=== PATIENT | male | born 1980 | race Caucasian/White ===

== ENCOUNTER 2018-01-18 23:50 | Emergency (ER) | payer MEDICAID ==
[~2018-01-18] VITALS: Ht 165.1 cm; Wt 53.5 kg
[2018-01-18 23:59] VITALS: Ht 165.1 cm; Wt 53.5 kg
[2018-01-19 00:48] LABS: BASOPHIL % 0.7 % (0-2); PLATELET COUNT 187 x10^3mcL (130-400); RED CELL DISTRIBUTION WIDTH 12.5 % (11.5-14.5)
[2018-01-19 00:58] LABS: CALCIUM 8.5 mg/dL (8.5-10.1); CARBON DIOXIDE 31.2 mmol/L (21-32); CHLORIDE SERUM 103 mmol/L (98-107); CREATININE SERUM 0.7 mg/dL (0.7-1.3); GFR1 > 60 mL/min; GLUCOSE SERUM 103 mg/dL (74-106); POTASSIUM SERUM 4.3 mmol/L (3.5-5.1); SODIUM SERUM 138 mmol/L (136-145)
[2018-01-19 00:59] LABS: microscopic required? NO
[2018-01-19 01:03] LABS: ALBUMIN 3.4 g/dL (3.4-5.0); ALKALINE PHOSPHATASE 101 U/L (46-116); ALT/SGPT 132 U/L (16-63); AST/SGOT 105 U/L (15-37); BILIRUBIN TOTAL 0.25 mg/dL (0.20-1.00)
[2018-01-19 01:28] LABS: urine erythrocyte NEGATIVE (NEGATIVE)
[2018-01-19 01:36] LABS: AMPHETAMINE QUAL UR NONE DETECTED
[2018-01-19 01:39] VITALS: BP 125/69
== END 2018-01-19 01:39 | disposition home or self-care (01) ==
LOC: ED 23:50
PROVIDERS: Emergency Medicine
DX: F15.93 Other stimulant use, unspecified with withdrawal (principal)
CPT/HCPCS: 36415

== ENCOUNTER 2020-05-12 08:22 | Emergency (ER) | payer MEDICAID ==
[~2020-05-12] VITALS: Ht 165.1 cm; Wt 56.7 kg
[2020-05-12 08:31] VITALS: Ht 165.1 cm; Wt 56.7 kg
[2020-05-12 09:21] VITALS: BP 144/97
== END 2020-05-12 09:21 | disposition home or self-care (01) ==
LOC: ED 08:22
DX: S05.02XA Injury of conjunctiva and corneal abrasion without foreign body, left eye, initial encounter (principal); X58.XXXA Exposure to other specified factors, initial encounter; Y93.89 Activity, other specified; Y92.89 Other specified places as the place of occurrence of the external cause; Y99.8 Other external cause status